=== PATIENT | female | born 1985 | race Caucasian/White ===

== ENCOUNTER 2018-02-10 10:21 | Emergency (ER) | payer BC, SELFPAY ==
[2018-02-10 10:22] VITALS: BP 131/77; PULSE 82; RESP 16; TEMP 36.8; O2SAT 100; BMI 25.0
--- NOTE | 2018-02-10 10:48 | EKG12_ITS ---
Test Reason : SOB Blood Pressure : / mmHG Vent. Rate : 074 BPM Atrial Rate : 074 BPM P-R Int : 136 ms QRS Dur : 084 ms QT Int : 408 ms P-R-T Axes : 045 -42 -21 degrees QTc Int : 452 ms Sinus rhythm with Premature atrial complexes with Aberrant conduction Left axis deviation Low voltage QRS (limb leads) Nonspecific T wave abnormality Inferior infarct , age undetermined , cannot be excluded Abnormal ECG Confirmed by MADELYN LAU, OMER ([id number]), deputy editor in chief EULALIA WEBB ([id number]) on 02/15/2018 10:51:43 AM Referred By: AURY Confirmed By:OMER JOSHI MD
--- NOTE | 2018-02-10 10:50 | RAD_ITS ---
STUDY: X-RAY CHEST REASON FOR EXAM: Female, 32 years old. Lower right-sided chest pain. Shortness of breath. TECHNIQUE: Single AP portable view of the chest. COMPARISON: None. FINDINGS: The lungs are clear and expanded. There is no demonstrated pleural abnormality. Normal size heart. Normal mediastinum and rekha. Normal visualized pulmonary arteries. Normal visualized aortic arch and descending thoracic aorta. Normal visualized thoracic spine. Normal visualized ribs, clavicles, and shoulders. There is gaseous distention of the distal portion of the transverse colon. RAD/Chest 1 View (Portable) IMPRESSION: Normal x-ray examination of the chest. Electronically Signed: Gaurang Randolph MD at 11:16 EST Tel [phone], Service support ,
[2018-02-10 11:11] LABS: Absolute Lymphocyte Count 1.09 X10^3/ul (0.83-4.51); Absolute Neutrophil Count 7.8 X10^3/uL (2.0-7.7); Basophil# 0.03 X10^3/uL; Basophil% 0.3 % (0-1); Eosinophil# 0.04 X10^3/uL; Eosinophils% 0.4 % (0-5); Lymphocyte # 1.09 X10^3/ul (4.0); Lymphocyte % 11.1 % (19-41); Mean Corp Hgb Conc 33.3 g/gl (32-36); Mean Corpuscular Hgb 29.9 pg (27.0-32.0); Mean Corpuscular Volume 89.7 fL (81-99); Mean Platelet Vol. 8.9 fl (6.2-12.0); Monocyte# 0.79 X10^3/uL; Monocyte% 8.1 % (0-10); Neutrophil # 7.82 X10^3/uL (2.7-7.7); Neutrophil % 79.8 % (47-70); Platelet Count 370 K/mm3 (150-450); RBC Distribution Width CV 14.3 % (11.6-14.6); RBC Distribution Width SD 46.1 fl (35.1-43.9); Red Blood Count 4.35 M/mm3 (4.2-5.4); White Blood Count 9.8 K/mm3 (4.4-11.0)
[2018-02-10 11:12] LABS: POSITIVE COUNT NO; POSITIVE DIFFERENTIAL NO; POSITIVE MORPHOLOGY NO
[2018-02-10 11:23] LABS: D-Dimer Quantitative (DVT/PE) 0.95 FEU/ug/m (0.27-0.49)
--- NOTE | 2018-02-10 11:23 | ED.RN ---
ddimer 0.[address] called from the lab. dr hoffman aware
[2018-02-10 11:29] LABS: Anion Gap 9 (5-15); BUN 14 mg/dL (7-18); BUN/Creat Ratio 16.9 RATIO (10-20); Calcium,Total 8.8 mg/dL (8.5-10.1); Chloride 107 mmol/L (98-107); Creatinine, Serum 0.83 mg/dL (0.55-1.02); EST Glomerular Filtration Rate 85 mL/min (>60); Est Glom Filt Rate - Afr Amer 103 mL/min (>60); Glucose 123 mg/dL (74-106); Potassium 3.8 mmol/L (3.5-5.1); Sodium Level 139 mmol/L (136-145)
--- NOTE | 2018-02-10 11:29 | CT_ITS ---
STUDY: CTA CHEST REASON FOR EXAM: Female, 32 years old. Chest pain x5 days. Elevated d-dimer. RADIATION DOSAGE (If Supplied By Facility): CTDIvol = ( 7.73 ) mGy, DLP = ( 581.47 ) mGycm TECHNIQUE: The examination was performed with the intravenous administration of 75mL ml of Isovue 370 contrast material. Post-processing of the angiographic images was performed, with multiplanar reformation and 3D reconstruction. Individualized dose optimization techniques were used for this CT. COMPARISON: None. FINDINGS: Normal enhancement of the main pulmonary artery and right and left pulmonary arteries. Normal enhancement of the bilateral peripheral pulmonary arteries. There is no demonstrated pulmonary embolism. Normal thoracic aorta and visualized great vessels. There is no demonstrated aortic dissection. Normal heart and pericardium. Normal mediastinum. Normal hilar regions. Normal visualized trachea and bronchi. The lungs are well expanded. Normal pulmonary parenchyma. Small amount of right pleural effusion is noted. Unsure if this represents infection. Normal chest wall structures. Normal osseous structures. Normal visualized upper abdomen. CT/CTA Chest W/WO Contrast IMPRESSION: Normal CTA chest examination, without a demonstrated pulmonary embolism or arterial dissection. Small amount of right pleural effusion. Unsure if this represents pneumonia/infection. Electronically Signed: Reji Nick DO at 12:32 EST Tel , Service support ,
[2018-02-10 11:32] LABS: Pregnancy, Serum, hCG Quali. NEGATIVE Negative (0-9 Nonpreg)
--- NOTE | 2018-02-10 11:54 | ED.VISSUMM ---
- ER Visit Summary Date of Service: 02/10/18 Chief Complaint: Chest pain History of Present Illness: The patient is a 32 F with right side chest pain in her axillary region. This started about 5 days ago suddenly. It feels like a sharp pain and it is worse with breathing. She feels like she cannot catch her breath. She never had this before. Nothing seemed to bring it on. Denies any recent travel or hospitalization. Denies smoking. She does use oral contraceptives. Denies any heart disease or aortic disease. No cough or sputum. No fevers. Denies trauma. Physical Examination: Afebrile and vital signs unremarkable. 100% on room air. Heart regular. Lungs clear. Calf soft and supple. Skin appears normal. Test Results: EKG shows sinus rhythm at a rate of 74. Chest x-ray normal. CBC and BMP unremarkable. test negative. Troponin normal. D-dimer elevated. CTA pending. Emergency Department Course and Treatment: Patient presents with chest pain and shortness of breath. Pleuritic pain. She is low risk. D-dimer was positive however. CTA is pending. CTA showed a mild right pleural effusion. Cannot rule out infection or pneumonia. Patient has pleuritic symptoms. I believe this is causing her pain. There is no evidence of PE or dissection. Patient will be treated with azithromycin for respiratory coverage and Motrin. Follow-up with primary care. Return for any new or worsening issues. Treatment Plan: As above Disposition: Discharge Impression: 1. Right mild pleural effusion This note was generated with [employer] dictation software. It may contain incorrect words, spelling, and punctuation that were not noted in review of the chart prior to signing ED Disposition - Plan for ED Patient: Chief Complaint: Shortness of Breath Referrals: Care Physician,No Primary [Primary Care Provider] -
[2018-02-10 12:20] VITALS: BP 123/81; PULSE 72; RESP 20; O2SAT 98
--- NOTE | 2018-02-10 13:22 | ED.DEP ---
ED Disposition - Plan for ED Patient: Chief Complaint: Shortness of Breath Instructions: Pleural Effusion Prescriptions: Azithromycin 250 mg PO DAILY 4 Days #4 tab Ibuprofen [Motrin] 800 mg PO TID PRN PRN #20 tab PRN Reason: Pain Referrals: Anna Verdugo MD [STAFF PHYSICIAN] -
[2018-02-10 13:28] VITALS: BP 122/76; PULSE 77; RESP 16; O2SAT 99
[2018-02-10] MEDS: Azithromycin 250 MG Tablet 500 MG PO (13:34)
== END 2018-02-10 13:42 | disposition home or self-care (01) ==
PROVIDERS: Emergency Provider Emergency Medicine
DX: J90 Pleural effusion, not elsewhere classified (principal); Z87.891 Personal history of nicotine dependence
CPT/HCPCS: 71045; 71275; 80048; 84484; 84703; 85025; 85379; 93005; 99285; Q9967; A4216